=== PATIENT | female | born 1950 | race Caucasian/White ===

== ENCOUNTER 2020-02-25 15:19 | Emergency (ER) | payer MEDICARE, OTHER ==
[~2020-02-25] VITALS: Ht 160 cm; Wt 67.9 kg
--- NOTE | 2020-02-25 15:39 | NUR ---
PT AMBULATED WITH TECH TO ROOM. STEADY GAIT.
--- NOTE | 2020-02-25 15:40 | NUR ---
PT PRESENTED TO ED D/T HOARSE VOICE, SORE THROAT, AND COUGH X2 WEEKS. PT STATES HAS NOT BEEN AROUND ANYONE THAT HAS TESTED POSITIVE FOR COVID.
[2020-02-25] MEDS ORDERED: LEVO25TA4 PO (15:43)
--- NOTE | 2020-02-25 15:43 | NUR ---
PA AT BEDSIDE PERFORMING COVID TESTING.
--- NOTE | 2020-02-25 16:35 | NUR ---
PT DC HOME IN A STABLE CONDITION. DC INSTRUCTIONS DISCUSSED WITH PT. PT VERBALIZED UNDERSTANDING. NO FURTHER QUESTIONS OR CONCERNS WERE EXPRESSED AT THAT TIME. GETTING SELF DRESSED AND TO AMBULATE OUT OF ED WITH RN.
[2020-02-25 16:36] VITALS: BP 175/85
== END 2020-02-25 16:38 | disposition home or self-care (01) ==
LOC: ED 16:30
DX: J06.9 Acute upper respiratory infection, unspecified (principal); Z20.828 Contact with and (suspected) exposure to other viral communicable diseases; M79.10 Myalgia, unspecified site; J02.9 Acute pharyngitis, unspecified; R05 Cough; R06.02 Shortness of breath; R50.9 Fever, unspecified
CPT/HCPCS: 71045; 99284; U0003